=== PATIENT | female | born 1955 | race Caucasian/White ===

== ENCOUNTER → 2023-08-27 11:00 | Outpatient (REF) | payer MEDICARE, SELFPAY | LOC: PAVMRI 11:00 | PROVIDERS: ATTENDING PHYSICIAN Family Medicine | DX: H53.9 Unspecified visual disturbance (principal); R47.89 Other speech disturbances | CPT/HCPCS: 70544; 70553; A9575 ==

== ENCOUNTER 2023-09-12 22:14 | Observation (INO) | payer MEDICARE, SELFPAY ==
[2023-09-12 19:39] VITALS: BP 179/89
[2023-09-12 19:51] VITALS: BMI 36.7
[2023-09-12 19:52] VITALS: BP 180/103
[2023-09-12 19:58] LABS: Glucose - Point of Care 123 mg/dl (70-99)
[2023-09-12 20:00] VITALS: BP 175/97
--- NOTE | 2023-09-12 20:03 | ED.CVA ---
History of Present Illness
General
Chief Complaint: CVA/TIA Symptoms
Source: patient
Exam Limitations: none
Time Seen by Provider: 09/12/23 19:51
Onset of Stroke Symptoms
Onset of symptoms known: Yes
Date of onset of symptoms: 09/12/23
Time of onset of symptoms: 17:30
Travel History
Have you had any contact with someone who has COVID-19?: No
Do you have any symptoms of coronavirus? Fever > 100 degrees, chills, cough, shortness of breath, sore throat, loss of taste or smell, muscle aches, or headache?: No
History of Present Illness
History of Present Illness:
59-year-old female noted some foggy feeling then was talking to herself and her cats and noted difficulty with her speech. Symptoms x 30 minutes. Previous similar episode last summer. Patient does take an aspirin per day. No other neurologic
symptoms. 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
Past History
Past History
ED Past Medical History: HTN and Hypercholesterolemia
ED Past Surgical History: and Orthopedic
Review of Systems
Review of Systems
All Other Systems: Not applicable
Respiratory: Reports no symptoms
Cardiac: Reports no symptoms
ABD/GI: Reports no symptoms
Phy Exam
Physical Exam
Physical Exam:
GENERAL: Alert and oriented in no apparent distress
EYE: Orbits normal.
NECK: Supple, no carotid bruit
ENT: Pharynx without erythema
CARDIAC: Regular rate and rhythm without any obvious murmurs.
LUNGS: Clear breath sounds,normal
ABDOMEN: Soft, without focal tenderness or distention
NEUROLOGICAL: Alert and oriented , cranial nerves II through XII intact. Speech normal. Extraocular muscles intact. Lalitt-jy-[id number] normal. No drift. Good lower extremity strength. Plur-mk-irak normal. Light touch intact. No neglect.
SKIN: Warm and dry, no rash or lesion, no discoloration, skin intact.
MUSCULOSKELETAL: No edema,no deformity.Good color
PSYCH: Normal and appropriate interaction.
Course
Orders/Labs/Results
Orders:
Orders
09/12/23 19:51
Electrocardiogram (*1) Stat
Reason for Study: Other
Other Reason for Exam: neuro symptoms
CT Head W/o Iv Contrast Urgent
Comment:
Reason For Exam: Transient aphasia
Cardiac Monitoring- Treatment ONCE
EKG- Treatment ONCE
IV Insert/Care/Rem.- Treatment PRN
Pulse Ox/cont/shift [RESP] Stat
Quantity: 1
09/12/23 19:54
Basic Metabolic Panel Urgent
Complete Blood Count/With Diff Urgent
PTT Urgent
Prothrombin Time Urgent
Abnormal Lab Results
09/12/23 09/12/23
19:54 19:56
BUN 31 H mg/dl
(7-17)
Glucose 123 H mg/dl
(70-99)
Calcium 10.8 H mg/dl
(8.4-10.2)
POC Glucose 123 H mg/dl
(70-99)
09/12/23 19:54
09/12/23 19:54
Vital Signs
Initial and Last Documented VS:
Initial Vital Signs
Temp Pulse Resp BP Pulse Ox
98.3 F 75 18 179/89 96
09/12/23 19:39 09/12/23 19:39 09/12/23 19:39 09/12/23 19:39 09/12/23 19:39
Last Documented Vital Signs
Temp Pulse Resp BP Pulse Ox
98.3 F 75 18 179/89 96
09/12/23 19:39 09/12/23 19:39 09/12/23 19:39 09/12/23 19:39 09/12/23 19:39
MDM/Problems Addressed
Differential Diagnosis Includes:
Symptoms consistent with a TIA. Currently asymptomatic. Workup in progress. Warrants admission
*Radiology
Radiology exam reviewed: radiology read reviewed (Negative)
*Pulse Oximetry
Patient hypoxic: no
*EKG
Interpreted by ED Provider?: Yes
Interpretation: normal
Comparison EKG: no comparison EKG present
Heart Rate: 71
Rate: normal
Rhythm: sinus
Rufus: left axis deviation
Interval: normal interval
QRS Pattern: normal QRS
Ischemia: no ischemia
*Critical Care Note
Total Time (30-74mins, 75-104mins- exclusive of procedures): Not Applicable
Data Reviewed
Review of Other/Old Records Reveals: Labs and Radiology Studies
Update Note
Update Note:
Expressive aphasia TIA. Warrants inpatient management
ED Attending Note
-
Portions of this chart may have been created with voice recognition software.� Occasional wrong word or��sound alike� substitutions may have occurred due to the inherent limitations of voice recognition software.
Discharge Plan
Departure
Patient Disposition: Admit
Date of Disposition: 09/12/23
Time of Disposition: 20:32
Presentation/result/management discussed w/ accepting MD/DO: Hospitalist
Discharge Problem:
Expressive aphasia/TIA
Prescriptions:
No Action
levothyroxine 137 mcg Tablet
137 mcg PO DAILY
aspirin 325 mg Tablet
325 mg PO HS
lisinopril 20 mg Tablet
20 mg PO DAILY
Theragen Tablet
1 tab PO HS
carvedilol 3.125 mg Tablet
3.125 mg PO BID
furosemide 20 mg Tablet
20 mg PO Q48H@0800
rosuvastatin 20 mg Tablet
20 mg PO DAILY
cholecalciferol (vitamin D3)
1 tab PO DAILY
magnesium
1 tab PO DAILY
Referrals:
UNKNOWN - PT DOES,NOT KNOW [Family Provider] -
Interventions
Interventions:
*Risk Screen - Suicide Last Done: 09/12/23 19:39
*General Assessment Last Done: 09/12/23 19:39
*Neglect/Abuse Screening Last Done: 09/12/23 19:39
ED- Neurological Assessment Last Done: 09/12/23 19:57
[2023-09-12 20:06] LABS: % Basophils 0.9 % (0-2); % Immature Granulocytes 0.2 % (0-0.5); % Lymphocytes 28.7 % (20.5-51.1); % Monocytes 5.5 % (1.7-9.3); % Neutrophils 60.7 % (42.2-75.2); Absolute Basophils 0.1 10^3/uL (0-0.2); Absolute Eosinophils 0.2 10^3/uL (0-0.7); Absolute Lymphocytes 1.5 10^3/uL (1.2-3.4); Absolute Monocytes 0.3 10^3/uL (0.1-0.6); Absolute Neutrophils 3.2 10^3/uL (1.4-6.5); Hematocrit 41.5 % (37.0-47.0); Hemoglobin 14.7 g/dL (12.0-16.0); Mean Corp Hgb Conc. 35.4 g/dL (33.0-37.0); Mean Corpuscular Hgb 30.8 pg (27.0-31.0); Mean Platelet Volume 8.9 fL (7.4-10.4); Nucleated Red Blood Cells % 0 %; Platelet Count 174 10^3/uL (130-400); Red Blood Cell Count 4.77 10^6/uL (4.20-5.40); Red Cell Dist. Width 12.9 % (11.5-14.5); White Blood Cell Count 5.3 10^3/uL (4.8-10.8)
[2023-09-12 20:19] LABS: Blood Urea Nitrogen 31 mg/dl (7-17); Calcium 10.8 mg/dl (8.4-10.2); Carbon Dioxide 26 mmol/L (22-30); Chloride 100 mmol/L (98-107); Estimated Creatinine Clearance 60 ml/min; Glucose 123 mg/dl (70-99); Potassium 3.9 mmol/L (3.5-5.1); Sodium 137 mmol/L (135-145); eGFR > 60.00
[2023-09-12 20:38] LABS: INR 1.02; PT 13.4 Sec (11.4-14.6)
[2023-09-12 20:39] LABS: APTT 25.9 Sec (23.4-35.0)
--- NOTE | 2023-09-12 20:43 | HPS.HSE ---
Addendum entered and electronically signed by Zen Boyd DO 09/12/23 22:56:
I saw and examined the patient.
The FAITH HEALER's note was reviewed and I agree with the note.
Subjective
This is a 59yo F with PMH CVA, HTN/HLD, Hypothyroidism who presents to ER after episode of word finding difficulty around 5:30pm while at home watching tv and using the computer. Pt states she could feel it coming on. Denies associated headache.
Additionally had difficulty reading her daughters text messages as well as had difficulty texting back. She was able to call her daughter who also confirmed difficulty speaking which improved over time. Total duration 30min. Pt states she had
similar episode in February. Did not initially seak medication attention but then followed up with PCP and had MRI confirming subacute infarct (see 07/2023 MRI). She was started on aspirin, simvastatin changed to rosuvastatin, and additionally coreg
was added recently for uncontrolled HTN. Denies fever, chills, dizziness/LH, CP, palps, wheezing, cough, abd pain, n/v/d/c, dysuria, calf or leg pain. Denies focal weakness or sensation deficits.
Physical Exam:
GEN: No acute distress, conversant, pleasant
HEENT: anicteric, extraocular movements intact, clear oropharynx without exudates
CV: normal S1/S2, no murmur, rub or gallop
RESP: clear to auscultation bilaterally
GI: soft, non-distended, not tender to palpation, normal active bowel sounds, no hepatosplenomegaly
EXT: warm, well perfused, no edema bilaterally
NEURO: AAOx3, non-focal. No tongue deviation. Uvula midline. MSK 5/5 throughout. Sensation intact. Finger to nose and heel to mauro intact.
Psych: Flat affect.
A/P
Expressive Aphasia / Hx CVA
- CT brain negative for acute pathology
- Recent 07/2023 MRI/MRA reviewed: Cortical and subarachnoid T2/FLAIR hyperintense signal within the right temporoparietal and occipital regions and also minimally in the posterior left parietal region, without associated enhancement. There may be
subtle/questionable restricted diffusion associated with these areas as well as questionable attenuation of distal/peripheral right posterior cerebral artery branches (P4/P5). Findings may reflect subacute cortical infarction. No associated
hemorrhage. Differential includes atypical appearance of posterior reversible encephalopathy syndrome (PRES), meningitis and changes related to migraines.Otherwise no focal hemodynamically significant stenosis, aneurysm or occlusion.
- Stroke protocol. Q4h neurochecks. Obtain MRI/TTE
- Currently observing permissive HTN. Prn Hydralazine for SBP > 220/120mmHg
- Check Lipids/A1C/TSH/B12
- Continue aspirin/statin.
- Neuro consult, PT/OT
Uncontrolled HTN
-allow permissive htn
- Lisinopril/lasix on hold. Will continue coreg given gross elevation wtih Prn Hydralazine for SBP > 220/120mmHg
Hypothyroidism - Continue home synthroid
Diet - Regular
Code Status - Full
PPx - SCDs
Original Note:
Family Physician
-
Family Physician: Vonda Lenz
Chief Complaint
-
difficulty finding words
History of Present Illness
59-year-old female with PMh for HTN, HLD presented to us with finding words difficulty today which lasted for 30 minutes. she was not able to text. she had same symptoms in February. at that time, she noted some foggy feeling. she did not seek help at
that time. later in July, she told her PCP and obtained MRI with subacute infraction and was initiated on aspirin. denied GALLEGOS, dizzy or syncopal episode. denied blurry vision, numbness or tingling. denied any focal weakness. denied fever, chills,
chest pain, sob. denied abdominal pain, n,v, d. denied dysuria or hematuria.
Head CT with no acute findings. admitting for further management.
Medical History
Past Medical History
Past Medical History: Reports Other
Additional Past Medical History:
htn
hld
Past Surgical History: Reports Other
Additional Past Surgical History:
left foot reconstruction
left knee replacement
c section
Social History
Tobacco: Non-smoker
Alcohol: Occasional
Drug: None
Family History
Family History: Not pertinent
Allergies / Home Medications
Allergies reflects when Allergies were last updated in [facility].
Home Medications with original date entered in [facility]
Allergy/Medication List:
Allergies
Allergy/AdvReac Type Severity Reaction Status Date / Time
meperidine [From Demerol] Allergy Vomiting Verified 06/13/20 12:26
Home Medications
aspirin 325 mg tablet 325 mg PO HS 09/12/23
carvedilol 3.125 mg tablet 3.125 mg PO BID 09/12/23
cholecalciferol (vitamin D3) 1 tab PO DAILY 09/12/23
furosemide 20 mg tablet 20 mg PO Q48H@0800 09/12/23
levothyroxine 137 mcg tablet 137 mcg PO DAILY 09/12/23
lisinopril 20 mg tablet 20 mg PO DAILY 09/12/23
magnesium 1 tab PO DAILY 09/12/23
rosuvastatin 20 mg tablet 20 mg PO DAILY 09/12/23
therapeutic multivitamin 1 tab PO HS 09/12/23
Review of Systems
-
Constitutional: Reports No Symptoms
EENT: Reports No Symptoms
Respiratory: Reports No Symptoms
Cardiac: Reports No Symptoms
Abdomen/GI: Reports No Symptoms
: Reports No Symptoms
Musculoskeletal: Reports No Symptoms
Skin: Reports No Symptoms
Neurological: Reports Other (finding words difficutly)
Endocrine: Reports No Symptoms
Hematologic/Lymphatic: Reports No Symptoms
Psych: Reports No Symptoms
Physical Exam
Vital Signs
Vital Signs
Temp Pulse Resp BP Pulse Ox
98.3 F 67 24 175/97 96
09/12/23 19:39 09/12/23 20:30 09/12/23 20:30 09/12/23 20:00 09/12/23 19:39
Physical Exam
General: Well Developed, Well Nourished and No Apparent Distress
HEENT: NormoCephalic, Moist mucous membranes and Atraumatic
Respiratory: Clear
Cardiac: S1/S2 and Regular Rhythm; No Murmur or Rub
GI: Soft, Non Tender, Non Distended and Normal Bowel Sounds; No Organomegaly
Rectal: Deferred by Provider
Musculoskeletal: No Clubbing, No Cyanosis and No Edema
Skin: No Rash
Neuro: AO x 3 and Nonfocal/grossly intact
Psych: Calm
Laboratory Results
-
09/12/23 19:54
09/12/23 19:54
Laboratory Results
PT 13.4 Sec (11.4-14.6) 09/12/23 19:54
INR 1.02 09/12/23 19:54
APTT 25.9 Sec (23.4-35.0) 09/12/23 19:54
Data Reviewed
-
CT Scan: Report Reviewed by me
Lab Data: Labs Reviewed by me
Impression/Plan
-
#expressive aphasia likely TIA
-head CT with No acute intracranial abnormality.
-recent MRI on 08/27Cortical and subarachnoid T2/FLAIR hyperintense signal within the right temporoparietal and occipital regions and also minimally in the posterior left parietal region, without associated enhancement. There may be
subtle/questionable restricted diffusion associated with these areas as well as questionable attenuation of distal/peripheral right posterior cerebral artery branches (P4/P5). Findings may reflect subacute cortical infarction. No associated
hemorrhage. Differential includes atypical appearance of posterior reversible encephalopathy syndrome (PRES), meningitis and changes related to migraines.Otherwise no focal hemodynamically significant stenosis, aneurysm or occlusion.
-obtain MRI
-ECHO
-lipid profile
-a1c
-statin and aspirin
-PT/OT
-neuro consult
#essential htn
-allow permissive htn
-lisinopril, Coreg continued
-hold Lasix
#DVT prophylaxis
-scd
#CODE status
-full code
[2023-09-12 21:00] VITALS: BP 152/75
--- NOTE | 2023-09-12 22:25 | CON.NEURO ---
Addendum entered and electronically signed by Gini Whitlock MD 10/16/23 16:54:
DOS: �09/13/23
Original Note:
Consultation
Order
Date of Consultation: 09/13/23
Requesting Provider: ANILA Young
Reason for Consult: stroke
CC:none
HPI: This is a 67-year-old woman who presented to [facility] on September 12, 2023 with language dysfunction. According to the patient
According to the patient she had difficulties expressing her thoughts as well as manipulating her phone including texting lasting for half an hour with associated transient headache on the day of the presentation. Ms. Oliva recalls similar episode
lasting for several hours that occurred in February. She had brain MRI in July 2023 after she mentioned about her first spell during her PCP visit. The patient admits that her colleagues have been noticing her intermittent 'mistyping'. No
reports of visual changes, abnormal movements, history of head trauma with loss of consciousness or childhood epilepsy. No recently started medications
ER VS: 179/89-180/103, 75, afebrile.
EKG-NSR
Labs: Glucose�123, normal WBCs, sodium, LDL 67.
MRI brain with severo(08/27/2023) 'Cortical and subarachnoid T2/FLAIR hyperintense signal within the right temporoparietal and occipital regions and also minimally in the posterior left parietal region, without associated enhancement. There may be
subtle/questionable restricted diffusion associated with these areas as well as questionable attenuation of distal/peripheral right posterior cerebral artery branches (P4/P5). Findings may reflect subacute cortical infarction. No associated
hemorrhage. Differential includes atypical appearance of posterior reversible encephalopathy syndrome (PRES), meningitis and changes related to migraines.
Brain MRI wo severo(09/13/2023)-Partial resolution of the previous areas of hyperintense T2/FLAIR signal intensity in the cortical and subarachnoid right temporal parietal and occipital regions. Minimal residual increased T2 signal intensity in the
deep white matter this area. As noted on the previous examination this could represent an atypical appearance of vasculitis and/or migraines headaches. Differential at that time included atypical appearance of posterior reversible encephalopathy
syndrome (PRES) and meningitis. However there was no abnormal enhancement in this region on the previous exam'
MRA head(08/27/2023)-�no focal hemodynamically significant stenosis, aneurysm or occlusion.
PDMP: No recently prescribed medications.
PMH: CAD, HTN, DLP, DM, CKD, GERD, OA, obesity, BL SNHL
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
FH: Noncontributory
All: Demerol
ROS:Constitutional: Negative. Negative for chills, fever and unexpected weight change.
HENT: Negative for ear pain, hearing loss, tinnitus and trouble swallowing.
Eyes: Negative. Negative for photophobia, pain and visual disturbance.
Respiratory: Negative for cough, choking and shortness of breath.
Cardiovascular: Negative for chest pain, palpitations and leg swelling.
Gastrointestinal: Negative for abdominal pain and vomiting.
Endocrine: Negative. Negative for cold intolerance.
Genitourinary: Negative for dysuria, flank pain and urgency.
Musculoskeletal: Negative for back pain, gait problem, neck pain and neck stiffness.
Skin: Negative for rash.
Allergic/Immunologic: Negative. Negative for immunocompromised state.
Neurological: Negative for dizziness, tremors, seizures, speech difficulty, numbness and headaches.
Psychiatric/Behavioral: Negative for behavioral problems, confusion and hallucinations.
General: Well developed. In no acute distress.
Cardio: Regular rate and rhythm without murmur. Extremities are without cyanosis or edema.
Neuro:
Mental Status: Alert, oriented to person, place, and date. Normal attention and recall. Good fund of knowledge. Follows complex requests across the midline. Comprehension, naming, and repetition intact. Immediate and delayed recall 3/3.
Cranial Nerves: . Pupils are equally round and reactive to light. EOMs full. Visual haile full to confrontation. No ptosis. No nystagmus. V1-V3 intact to light touch and pinprick bilaterally, symmetric. Face symmetric. Poor hearing AU. The
palate elevated well. SCMs and traps 5/5. Tongue midline. No dysarthria.
Motor: Normal bulk and tone. No pronator or arm drift. Strength 5/5 throughout. No clonus.
Reflexes: 2+ throughout the upper extremities and knees. Plantar responses flexor bilaterally.
Sensory: Normal pinprick, vibration and JPS.
Coordination: No dysmetria or tremor.
Gait: deferred
Assessment and Plan:
I. Probably hypertensive emergency
II. Abnormal brain MRI. Differential diagnosis includes PRES, less likely postictal.
III. HTN
-Strict BP control
-OP cEEG
-Start Keppra 500 mg twice daily with a plan to wean off as outpatient
-Patient neurology follow-up in 2-3 weeks
I personally reviewed all radiology and labs along with past medical records pertinent to current medical problems. total time spent in patient care is 60 minutes.
Thank you for allowing us to participate in the care of this patient. We will continue to follow. Please do not hesitate to contact us with any questions or concerns.
Subjective/Objective
Subjective Data
Date of Service: September 12, 2023
Objective Data
Vital Signs
Temp Pulse Resp BP Pulse Ox
36.8 C 67 24 175/97 96
09/12/23 19:39 09/12/23 20:30 09/12/23 20:30 09/12/23 20:00 09/12/23 19:39
Lab Results
09/12/23 19:54
09/12/23 19:54
PT 13.4 Sec (11.4-14.6) 09/12/23 19:54
INR 1.02 09/12/23 19:54
APTT 25.9 Sec (23.4-35.0) 09/12/23 19:54
Sodium 137 mmol/L (135-145) 09/12/23 19:54
Potassium 3.9 mmol/L (3.5-5.1) 09/12/23 19:54
BUN 31 mg/dl (7-17) H 09/12/23 19:54
Glucose 123 mg/dl (70-99) H 09/12/23 19:54
Calcium 10.8 mg/dl (8.4-10.2) H 09/12/23 19:54
Patient Allergies
meperidine [From Demerol] Allergy (Verified 06/13/20 12:26)
Vomiting
Medications
-
Home Medications
Medication Instructions Recorded
aspirin 325 mg tablet 325 mg PO HS 09/12/23
carvedilol 3.125 mg tablet 3.125 mg PO BID 09/12/23
cholecalciferol (vitamin D3) 1 tab PO DAILY 09/12/23
furosemide 20 mg tablet 20 mg PO Q48H@0800 09/12/23
levothyroxine 137 mcg tablet 137 mcg PO DAILY 09/12/23
lisinopril 20 mg tablet 20 mg PO DAILY 09/12/23
magnesium 1 tab PO DAILY 09/12/23
rosuvastatin 20 mg tablet 20 mg PO DAILY 09/12/23
therapeutic multivitamin 1 tab PO HS 09/12/23
Vital Signs and Labs
-
Vital Signs and Labs:
Vital Signs
Temp Pulse Resp BP Pulse Ox
36.6 C 72 16 133/87 98
09/13/23 12:08 09/13/23 12:08 09/13/23 12:08 09/13/23 12:08 09/13/23 12:08
Lab Results
09/13/23 07:30
09/13/23 07:30
PT 13.4 Sec (11.4-14.6) 09/12/23 19:54
INR 1.02 09/12/23 19:54
APTT 25.9 Sec (23.4-35.0) 09/12/23 19:54
Sodium 136 mmol/L (135-145) 09/13/23 07:30
Potassium 3.8 mmol/L (3.5-5.1) 09/13/23 07:30
BUN 25 mg/dl (7-17) H 09/13/23 07:30
Glucose 176 mg/dl (70-99) H 09/13/23 07:30
Calcium 10.0 mg/dl (8.4-10.2) 09/13/23 07:30
LDL Cholesterol, Calc 67 mg/dl 09/13/23 07:30
Vitamin B12 > 1000 pg/ml (239-931) H 09/13/23 07:30
Home Medications
-
Home Medications
aspirin 325 mg tablet 325 mg PO HS Blood Clot Prevention/Tx 09/12/23
carvedilol 3.125 mg tablet 3.125 mg PO BID Heart Failure 09/12/23
cholecalciferol (vitamin D3) 1 tab PO DAILY Supplement 09/12/23
furosemide 20 mg tablet 20 mg PO Q48H@0800 Fluid Retention/Swelling 09/12/23
levothyroxine 137 mcg tablet 137 mcg PO DAILY Thyroid 09/12/23
lisinopril 20 mg tablet 20 mg PO DAILY Blood Pressure 09/12/23
magnesium 1 tab PO DAILY Supplement 09/12/23
rosuvastatin 20 mg tablet 20 mg PO DAILY High Cholesterol 09/12/23
therapeutic multivitamin 1 tab PO HS Supplement 09/12/23
Medications
-
Medications:
Generic Name Dose Route Start Last Admin
Trade Name Freq PRN Reason Stop Dose Admin
Acetaminophen 650 mg 09/13/23 00:33
Acetaminophen 650 Mg Rectal Suppository RECTAL 10/11/23 00:32
Q4HPRN PRN
GALLEGOS, mild pain, or temp >100.4F
Acetaminophen 650 mg 09/13/23 00:33 02/16/24 05:14
Acetaminophen 325 Mg Tablet PO 10/11/23 00:32 650 mg
Q4HPRN PRN Administration
GALLEGOS, mild pain, or temp >100.4F
Aspirin 81 mg 09/13/23 08:00 09/13/23 12:09
Aspirin 81 Mg Chewable Tablet PO 10/11/23 07:59 81 mg
DAILY MARRY Administration
Atorvastatin Calcium 40 mg 09/13/23 18:00
Atorvastatin (Lipitor) 40 Mg Tablet PO 10/11/23 17:59
QPM MARRY
Carvedilol 3.125 mg 09/13/23 08:00 09/13/23 12:09
Carvedilol 3.125 Mg Tablet PO 10/11/23 07:59 3.125 mg
BID MARRY Administration
Levothyroxine Sodium 137 mcg 09/13/23 07:00 09/13/23 05:14
Levothyroxine 137 Mcg Tablet PO 10/11/23 06:59 137 mcg
DAILY@0700 MARRY Administration
Ondansetron HCl 4 mg 09/13/23 06:00 09/13/23 06:08
Ondansetron 4 Mg/2 Ml Vial IV 10/11/23 05:59 4 mg
Q6HPRN PRN Administration
NAUSEA/VOMITING
Sodium Chloride 0 flush 09/13/23 01:00
Sodium Chloride 0.9% (Flush) Syringe IV 10/11/23 00:59
PER PROTOCOL MARRY
[2023-09-12 23:19] VITALS: BP 131/55
[2023-09-12 23:48] VITALS: BP 131/55
[2023-09-13] VITALS (9 sets, daily range): BP systolic 97–176; BP diastolic 53–98; BMI 36.0
--- NOTE | 2023-09-13 01:45 | PTCARENOTE ---
Pt arrived on floor @ 0010. Was able to walk into room without assistance. In stable condition, with no complaints of pain. NIH - 0. Was oriented to room and call vargas; will continue to monitor
[2023-09-13] MEDS: SYNTHROID 137 MCG PO (05:14)
[2023-09-13] MEDS: TYLENOL 650 MG PO ×2 (05:14→20:31)
[2023-09-13] MEDS: ZOFRAN 4 MG IV (06:08)
[2023-09-13 08:12] LABS: Hematocrit 37.4 % (37.0-47.0); Mean Corp Hgb Conc. 34.8 g/dL (33.0-37.0); Mean Corpuscular Hgb 30.5 pg (27.0-31.0); Mean Corpuscular Volume 87.8 fL (81.0-99.0); Mean Platelet Volume 9.4 fL (7.4-10.4); Platelet Count 148 10^3/uL (130-400); Red Blood Cell Count 4.26 10^6/uL (4.20-5.40); White Blood Cell Count 5.1 10^3/uL (4.8-10.8)
[2023-09-13 08:17] LABS: Blood Urea Nitrogen 25 mg/dl (7-17); Carbon Dioxide 28 mmol/L (22-30); Chloride 103 mmol/L (98-107); Estimated Creatinine Clearance 59 ml/min; Glucose 176 mg/dl (70-99); HDL Cholesterol 42 mg/dl; LDL Cholesterol, Calculated 67 mg/dl; Potassium 3.8 mmol/L (3.5-5.1); Sodium 136 mmol/L (135-145); Total Cholesterol 135 mg/dl (50-199); Triglyceride 131 mg/dl (10-149); Very Low Density Lipoprotein 26 mg/dl (0-30); eGFR > 60.00
[2023-09-13 08:46] LABS: TSH 2.77 uIU/ml (0.47-4.68)
[2023-09-13 09:06] LABS: Vitamin B12 > 1000 pg/ml (239-931)
--- NOTE | 2023-09-13 10:34 | EEGC.RPT ---
Continuous EEG Report
Recording
Start Date of Data Reviewed: 09/13/23
Done with Video Recording: Yes
Study Sequence: Interim Review
Electrocardiogram: Unremarkable
Report
TECHNICAL REMARKS: This is a technically satisfactory eighteen channel record employing 21 disc electrodes applied according to a measured international 10-20 electrode placement system. There were no significant technical difficulties. The study
was done on a [employer] System.
CLINICAL HISTORY: This is a 67-year-old woman with intermittent aphasia. This study was requested to look for epileptiform abnormalities.
MEDICATION: no AED
STUDY DURATION: 30 min, 3 secs
REPORT: At the onset of the EEG, the patient is awake. The background activity consists of 9.0-9.5 Hz, persistent, posteriorly dominant, moderate amplitude, symmetric and rhythmic activity that is reactive to eye-opening. Anteriorly, it consists of
a mixture of low voltage indeterminate activity and 20-25 Hz, persistent, low amplitude, symmetric and rhythmic activity. Stepwise intermittent photic stimulation (1-31 Hz) does not induce any abnormalities. Hyperventilation was not performed.
Drowsiness is characterized by low amplitude mixed frequency activity, decreased eye blinking, and muscle artifact. N2 sleep was reached.
IMPRESSION: This is a normal awake and sleep EEG. There is no evidence of focal slowing or epileptiform activity. A normal EEG does not rule out epilepsy. If the clinical picture warrants, a sleep-deprived awake and sleep record may be helpful.
[2023-09-13 11:40] LABS: Erythrocyte Sed Rate 5 mm/hour (0-20)
--- NOTE | 2023-09-13 12:07 | CM ---
Patient seen bedside, initial assessment completed. Patient reports she lives independently in a single story home with one step to enter. Patient denies DME, history of outpatient and in home physical therapy with [facility], denies SNF. Patient
confirms PCP Dr. Lenz, pharmacy [facility]. VELEZ status explained, form provided, refuse to sign, placed in patients chart. Per Hospitalist, will order PT/OT, neurology consulted. CM will continue to follow for discharge planning needs.
Plan; home no needs vs VN, watch for PT/OT assessment.
[2023-09-13] MEDS: LOW STRENGTH ASPIRIN 81 MG PO (12:09)
[2023-09-13] MEDS: COREG 3.125 MG PO ×2 (12:09→20:30)
--- NOTE | 2023-09-13 14:23 | W.PN.HOSP.TC ---
Today's Communication/Plan
-
await further neuro recs
Assessment / Plan
Assessment / Plan
Assessment:
Expressive Aphasia/Hx CVA
- CT brain negative for acute pathology
- Recent 07/2023 MRI/MRA reviewed: Cortical and subarachnoid T2/FLAIR hyperintense signal within the right temporoparietal and occipital regions and also minimally in the posterior left parietal region, without associated enhancement. There may be
subtle/questionable restricted diffusion associated with these areas as well as questionable attenuation of distal/peripheral right posterior cerebral artery branches (P4/P5). Findings may reflect subacute cortical infarction. No associated
hemorrhage. Differential includes atypical appearance of posterior reversible encephalopathy syndrome (PRES), meningitis and changes related to migraines.Otherwise no focal hemodynamically significant stenosis, aneurysm or occlusion.
- Stroke protocol. Q4h neuro-checks.
- MRI brain: no new infarct
- spot EEG negative
- Echo: pending
- LDL 67, A1c pending
- Continue aspirin/statin.
- Neuro consulted; await any further testing or recommendations.
- cleared PT/OT for home
Uncontrolled HTN
- resume AJAY/Lasix/Coreg
Hypothyroidism�- Continue home Synthroid
DVT ppx: SCDs
Code: Full
Anticipated Discharge: Within 24 hours
Subjective/Interval History
-
Date of Service: September 13, 2023
denies any current complaints
Objective Data
-
Labs:
Laboratory Results
09/13/23
07:30
WBC 5.1
Hgb 13.0
Hct 37.4
Plt Count 148
Sodium 136
Potassium 3.8
Chloride 103
Carbon Dioxide 28
BUN 25 H
Creatinine 1.0
Glucose 176 H
Calcium 10.0
Vital Signs:
Vital Signs
Temp Pulse Resp BP Pulse Ox
97.9 F 72 16 133/87 98
09/13/23 12:08 09/13/23 12:08 09/13/23 12:08 09/13/23 12:08 09/13/23 12:08
Physical Exam
-
General: No Apparent Distress
HEENT: Normocephalic and Atraumatic
Respiratory: Negative Wheezes
Cardiac: Regular Rhythm
GI: Soft
Musculoskeletal: No Edema
Neuro: AO x 3
Hematologic / Lymphatic: No Lymphadenopathy
Psych: Calm
Data Reviewed
-
Total Time Spent with Patient (in minutes): 45
Labs: Labs Reviewed by me
--- NOTE | 2023-09-13 16:14 | PTOTSP ---
ST Swallowing Assessment
Pt presents with functional oropharyngeal parameters. Pt self-reports some slight cognitive communication deficits that would benefit from a comprehensive cognitive linguistic evaluation as an OP.
[2023-09-13] MEDS: LIPITOR 40 MG PO (17:20)
[2023-09-13] MEDS: KEPPRA 500 MG IV (20:31)
[2023-09-14 03:31] VITALS: BP 110/61
[2023-09-14] MEDS: SYNTHROID 137 MCG PO (05:09)
[2023-09-14] MEDS: KEPPRA 500 MG IV (07:30)
[2023-09-14] MEDS: LOW STRENGTH ASPIRIN 81 MG PO (07:30)
[2023-09-14] MEDS: COREG 3.125 MG PO (07:30)
[2023-09-14 07:55] VITALS: BP 111/65
--- NOTE | 2023-09-14 09:27 | W.PN.HOSP.TC ---
Today's Communication/Plan
-
dc home today
Assessment / Plan
Assessment / Plan
Assessment:
Expressive Aphasia/Hx CVA
- CT brain negative for acute pathology
- Recent 07/2023 MRI/MRA reviewed: Cortical and subarachnoid T2/FLAIR hyperintense signal within the right temporoparietal and occipital regions and also minimally in the posterior left parietal region, without associated enhancement. There may be
subtle/questionable restricted diffusion associated with these areas as well as questionable attenuation of distal/peripheral right posterior cerebral artery branches (P4/P5). Findings may reflect subacute cortical infarction. No associated
hemorrhage. Differential includes atypical appearance of posterior reversible encephalopathy syndrome (PRES), meningitis and changes related to migraines.Otherwise no focal hemodynamically significant stenosis, aneurysm or occlusion.
- Stroke protocol. Q4h neuro-checks.
- MRI brain: no new infarct
- spot EEG negative
- Echo: pending
- LDL 67, A1c pending
- Continue aspirin/statin.
- Neuro started Keppra 500mg BID; f/u Neuro in 2-3 weeks.
- cleared PT/OT for home
Uncontrolled HTN
- continue AJAY/Lasix/Coreg
Hypothyroidism�- Continue home Synthroid
DVT ppx: SCDs
Code: Full
More than 30 minutes spent in discharge including
Final examination of the patient
Summarizing hospital stay
Instructions for continuing care to all relevant caregivers
Preparation of discharge records, prescriptions, and referral forms
Total time spent (in minutes): 40
Anticipated Discharge: Today
Subjective/Interval History
-
Date of Service: September 14, 2023
denies any new complaints, tolerating Keppra
Objective Data
-
Vital Signs:
Vital Signs
Temp Pulse Resp BP Pulse Ox
97.9 F 63 16 111/65 95
09/14/23 07:55 09/14/23 07:55 09/14/23 07:55 09/14/23 07:55 09/14/23 07:55
I&O
09/13/23 09/14/23 09/15/23
06:59 06:59 06:59
Intake Total 1440 / 1440
Balance 1440 / 1440
Physical Exam
-
General: No Apparent Distress
HEENT: Normocephalic and Atraumatic
Respiratory: Negative Wheezes or Rales
Cardiac: Regular Rhythm and S1/S2
GI: Soft
Genito-urinary: No Costovertebral Tender
Musculoskeletal: No Edema
Neuro: AO x 3
Hematologic / Lymphatic: No Lymphadenopathy
Psych: Calm
Data Reviewed
-
Total Time Spent with Patient (in minutes): 42
Labs: Labs Reviewed by me
--- NOTE | 2023-09-14 09:32 | W.DS.TRANS ---
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
-
Discharge Instructions:
Discharge Diagnosis/Procedures hypertension, possible seizure
Diet Regular
Activity As tolerated
Bathing Restrictions None
Instructions:
Stand-Alone Forms:
Changes to Home Medications: No
Discharge Medications:
DC Medications w/original date entered in [employer]
aspirin 325 mg tablet 325 mg PO HS Blood Clot Prevention/Tx 09/12/23
carvedilol 3.125 mg tablet 3.125 mg PO BID Heart Failure 09/12/23
cholecalciferol (vitamin D3) 1 tab PO DAILY Supplement 09/12/23
furosemide 20 mg tablet 20 mg PO Q48H@0800 Fluid Retention/Swelling 09/12/23
levothyroxine 137 mcg tablet 137 mcg PO DAILY Thyroid 09/12/23
lisinopril 20 mg tablet 20 mg PO DAILY Blood Pressure 09/12/23
magnesium 1 tab PO DAILY Supplement 09/12/23
rosuvastatin 20 mg tablet 20 mg PO DAILY High Cholesterol 09/12/23
therapeutic multivitamin 1 tab PO HS Supplement 09/12/23
levetiracetam 500 mg tablet (Keppra) 500 mg PO BID #60 tabs 09/13/23
Home Medication Changes
Pending Results: No
Total time spent discharging patient (in min): 41
--- NOTE | 2023-09-14 10:27 | CM ---
Patient seen bedside, reports no new concerns to CM at this time. Patient reports her daughter will be picking her up. CM will continue to follow for discharge planning needs.
Plan; home no needs, daughter to provide transport.
[2023-09-14 10:57] LABS: Glycohemoglobin (HgbA1c) 6.4 % (4.0-5.6)
== END 2023-09-14 12:01 | disposition home or self-care (01) ==
LOC: 4 WEST ACU 22:14
PROVIDERS: Registered Nurse; ADMITTING PHYSICIAN Internal Medicine; ATTENDING PHYSICIAN Internal Medicine; CONSULT PHYSICIAN Psychiatry & Neurology Neurology; EMERGENCY PHYSICIAN Emergency Medicine; FAMILY PHYSICIAN Family Medicine
DX: R47.01 Aphasia (principal); E78.00 Pure hypercholesterolemia, unspecified; E03.9 Hypothyroidism, unspecified; I25.10 Atherosclerotic heart disease of native coronary artery without angina pectoris; E66.9 Obesity, unspecified; Z79.890 Hormone replacement therapy; Z79.82 Long term (current) use of aspirin; Z60.2 Problems related to living alone; Z68.36 Body mass index [BMI] 36.0-36.9, adult; Z86.73 Personal history of transient ischemic attack (TIA), and cerebral infarction without residual deficits
CPT/HCPCS: 70450; 70551; 80048; 80061; 82607; 82962; 83036; 84443; 85025; 85027; 85610; 85652; 85730; 86140; 92610; 93005; 93306; 95816; 97161; 97165; 99285; G0378

== ENCOUNTER → 2023-11-05 09:04 | Outpatient (REF) | payer MEDICARE, SELFPAY ==
--- NOTE | 2023-11-06 14:12 | EEG.RPT ---
Electroencephalogram Report
Recording
Date of EE11/05/23
Type of EEG: Ambulatory
Length of EEG recordin day 20 minutes
Done with Video Recording: No
Patient Status: Outpatient
Recording Conditions: Awake, Drowsy and Asleep
Hyperventilation Performed: Yes
Photic Stimulation Performed: Yes
Report
24 HOUR AMBULATORY EEG SUMMARY
24 HOUR EEG CONCLUSION(S):
Unremarkable EEG for age
CLINICAL CORRELATION:
A normal EEG may not rule out a diagnosis of epilepsy.
The patient�s logs were not available.
Consideration for multiple day monitoring may be given if concerns for epilepsy remain.
Clinical correlation is advised.
METHODS:
A 21 channel digitized electroencephalogram (EEG) was initiated in the Clinical Neurophysiology Laboratory. The patient wore the device outside of the laboratory and returned after 24 hours for electrode and recorder removal. The 10/20
international system of electrode placement was used with bipolar electrode montage recorded. ECG was monitored.
IMPRESSION(S):
Quality
Fair-Good
Background
In maximal wakefulness there was a medium amplitude alpha background.
Normal anterior-posterior voltage gradient
No significant asymmetries of background activity noted.
Hyperventilation and Photic stimulation failed to produce activation of the record.
Sleep
Drowsiness was suggested by slowing of the background rhythms
Stage I sleep was recorded
Stage 2 sleep was recorded
ECG:
Normal sinus rhythm
Persyst Review:
Kenny files: failed to demonstrate abnormalities
Seizure detections: none
== END ==
LOC: RCS 09:04
PROVIDERS: ATTENDING PHYSICIAN Nurse Practitioner Adult Health; FAMILY PHYSICIAN Student in an Organized Health Care Education/Training Program
DX: R47.89 Other speech disturbances (principal); R56.9 Unspecified convulsions
CPT/HCPCS: 95708

== ENCOUNTER → 2023-12-03 14:00 | Outpatient (REF) | payer MEDICARE, SELFPAY | LOC: PAVMRI 14:00 | PROVIDERS: ATTENDING PHYSICIAN Nurse Practitioner Adult Health; FAMILY PHYSICIAN Student in an Organized Health Care Education/Training Program | DX: R47.89 Other speech disturbances (principal); R51.9 Headache, unspecified; R90.89 Other abnormal findings on diagnostic imaging of central nervous system | CPT/HCPCS: 70553; A9575 ==

== ENCOUNTER → 2024-02-13 11:43 | Outpatient (REF) | payer MEDICARE, SELFPAY ==
[2024-02-13 12:32] VITALS: BP 121/63; BP_SYST 67
[2024-02-13 13:11] LABS: Hematocrit 41.6 % (37.0-47.0); Hemoglobin 14.5 g/dL (12.0-16.0); Mean Corp Hgb Conc. 34.9 g/dL (33.0-37.0); Mean Corpuscular Hgb 31.1 pg (27.0-31.0); Mean Corpuscular Volume 89.3 fL (81.0-99.0); Mean Platelet Volume 9.1 fL (7.4-10.4); Platelet Count 176 10^3/uL (130-400); Red Blood Cell Count 4.66 10^6/uL (4.20-5.40); Red Cell Dist. Width 12.8 % (11.5-14.5); White Blood Cell Count 5.2 10^3/uL (4.8-10.8)
[2024-02-13 13:13] LABS: INR 1.03; PT 13.5 Sec (11.4-14.6)
[2024-02-13 14:15] VITALS: BP 138/75; BP_SYST 58
[2024-02-13 14:30] VITALS: BP 128/52; BP_SYST 58
[2024-02-13 15:41] LABS: CSF Clarity Clear; CSF Color Colorless; CSF Tube # 4
[2024-02-13 15:42] LABS: Red Cell Count/CSF 0 mm^3; White Cell Count/CSF 2 mm^3 (0-5)
[2024-02-13 16:13] LABS: Spinal Fluid Glucose 79 mg/dl (40-70); Spinal Fluid Protein 79 mg/dl (12-60)
[2024-02-17 00:36] LABS: FTA-ABS/T. pallidum, IgG Serum Non Reactive (Non Reactive)
[2024-02-17 02:01] LABS: CSF VDRL (T. pallidum) Non Reactive (Non Reactive)
[2024-02-17 10:08] LABS: Albumin Index 11.2 ratio (0.0-9.0); Albumin, CSF 45 mg/dL (0-35); Albumin, Serum 4015 mg/dL (3500-5200); CSF IgG Synthesis Rate <0.0 mg/d (<=8.0); CSF IgG/Albumin Ratio 0.08 ratio (0.09-0.25); CSF Oligoclonal Bands Negative (Negative); CSF Oligoclonal Bands Number 0 Bands (0-1); IgG 665 mg/dL (768-1632); IgG, CSF 3.4 mg/dL (0.0-6.0)
[2024-02-17 23:33] LABS: Lyme Disease DNA by PCR Not Detected; Lyme Source Serum
== END ==
LOC: RADI 11:43
PROVIDERS: ATTENDING PHYSICIAN Psychiatry & Neurology Neurology; FAMILY PHYSICIAN Student in an Organized Health Care Education/Training Program
DX: R90.89 Other abnormal findings on diagnostic imaging of central nervous system (principal); R47.9 Unspecified speech disturbances
CPT/HCPCS: 36415; 62328; 82040; 82042; 82784; 82945; 83916; 84157; 85027; 85610; 86592; 86780; 87015; 87070; 87205; 87476; 88108; 89051

== ENCOUNTER → 2024-08-27 10:50 | Outpatient (REF) | payer MEDICARE, SELFPAY | LOC: WDC 10:50 | PROVIDERS: ATTENDING PHYSICIAN Student in an Organized Health Care Education/Training Program | DX: Z12.31 Encounter for screening mammogram for malignant neoplasm of breast (principal) | CPT/HCPCS: 77063; 77067 ==

== ENCOUNTER → 2024-12-28 08:33 | Outpatient (REF) | payer MEDICARE, SELFPAY | LOC: RAD 08:33 | PROVIDERS: ATTENDING PHYSICIAN Nurse Practitioner Family; FAMILY PHYSICIAN Student in an Organized Health Care Education/Training Program | DX: E34.9 Endocrine disorder, unspecified (principal) | CPT/HCPCS: 78071; A9500 ==

== ENCOUNTER → 2024-12-31 08:11 | Outpatient (REF) | payer MEDICARE, SELFPAY | LOC: RAD 08:11 | PROVIDERS: FAMILY PHYSICIAN Student in an Organized Health Care Education/Training Program | DX: E34.9 Endocrine disorder, unspecified (principal) | CPT/HCPCS: 76536 ==

== ENCOUNTER 2025-04-27 06:08 | Day surgery (SDC) | payer MEDICARE, SELFPAY ==
[2025-04-05 08:55] LABS: Hematocrit 40.0 % (37.0-47.0); Hemoglobin 13.3 g/dL (12.0-16.0); Mean Corp Hgb Conc. 33.3 g/dL (33.0-37.0); Mean Corpuscular Volume 88.5 fL (81.0-99.0); Platelet Count 148 10^3/uL (130-400); Red Cell Dist. Width 12.7 % (11.5-14.5)
[2025-04-05 08:58] LABS: INR 1.00; PT 13.5 Sec (11.4-14.6)
[2025-04-05 08:59] LABS: APTT 24.8 Sec (23.4-35.0)
[2025-04-05 09:23] LABS: ALT (SGPT) 22 U/L (0-35); AST (SGOT) 21 U/L (14-36); Albumin 4.1 g/dl (3.5-5.0); Alkaline Phosphatase 129 U/L (38-126); Blood Urea Nitrogen 18 mg/dl (7-17); Calcium 10.6 mg/dl (8.4-10.2); Carbon Dioxide 29 mmol/L (22-30); Chloride 107 mmol/L (98-107); Glucose 206 mg/dl (70-99); Potassium 5.2 mmol/L (3.5-5.1); Sodium 140 mmol/L (135-145); Total Protein 6.4 g/dl (6.3-8.2); eGFR > 60.00
[2025-04-05 14:08] VITALS: BMI 34.5
[2025-04-27] VITALS (11 sets, daily range): BP systolic 110–184; BP diastolic 73–95; BMI 34.5
[2025-04-27] MEDS: HEPARIN 5000 UNITS SC (06:28)
[2025-04-27] MEDS: TYLENOL 1000 MG PO (06:28)
[2025-04-27] MEDS: NEURONTIN 300 MG PO (06:28)
[2025-04-27] MEDS: NORMOSOL-R/PLASMALYTE-A 1000 IV (06:29)
[2025-04-27 08:23] LABS: Turbo PTH 294.7 pg/ml (13.6-85.8)
[2025-04-27 09:09] LABS: Turbo PTH 97.0 pg/ml (13.6-85.8)
[2025-04-27 09:50] LABS: Turbo PTH 102.7 pg/ml (13.6-85.8)
[2025-04-27 10:56] LABS: Turbo PTH 17.1 pg/ml (13.6-85.8)
--- NOTE | 2025-04-27 12:48 | OR.RPT ---
Operative Report
Operative Report
Date of Operation: April 27, 2025
Preoperative Diagnosis: Parathyroid hyperparathyroidism - E210
Postoperative Diagnosis: Same
Surgeon: Matt Hollis M.D.
Operation: Neck Exploration, Right Inferior and Left Inferior Parathyroidectomy - 23441
Anesthesia: GET
Estimated Blood Loss: 10 cc
Drains: None
Specimen: Right and Left Inferior neck nodules, rule out parathyroid adenomas
Complications: None
Procedure:
The patient was taken to the operating room and placed in the usual supine position. After adequate general endotracheal anesthesia was established, the patient's neck was extended, prepped, and draped in the typical sterile fashion. A 4 cm
transcervical incision was made two fingerbreadths above the sternal notch. The skin incision was made with the #15 blade, and this was taken through the skin into the subcutaneous tissue. The underlying platysma muscle was divided, and subplatysmal
flaps were created superiorly to the thyroid cartilage and inferiorly to the sternal notch. Strap muscles were identified and at the midline.
Attention was turned to the patient's right side of the neck. The right thyroid lobe was mobilized medially. During this process, the right recurrent laryngeal nerve was identified and preserved throughout the surgery. The right lower neck nodule
was identified and noted to be enlarged, excised, and sent to the pathology department, which showed a hypercellular parathyroid gland. The intraoperative PTH levels failed to normalize.
Next, attention was turned to the patient's right side of the neck. The left thyroid lobe was mobilized medially. During this process, the left recurrent laryngeal nerve was identified and preserved throughout the surgery. The left lower neck nodule
was identified and noted to be enlarged, excised, and sent to the pathology department, which showed a hypercellular parathyroid gland. The intraoperative PTH levels normalize.
After obtaining adequate hemostasis, the strap muscles were reapproximated with #3-0 Vicryl in a running fashion. The platysma muscle was reapproximated with #3-0 Vicryl in an interrupted fashion, and the skin was approximated with #4-0 Monocryl in
a running subcuticular fashion. The Steri-Strips and sterile dressings were placed. The patient tolerated the procedure well. The final instrument, needle, and sponge counts were correct. The patient was extubated and transferred to the PACU.
--- NOTE | 2025-04-27 12:55 | W.IMMPOSTOP ---
Surgical Immed Post Op Note
-
Date of Operation: April 27, 2025
Preoperative Diagnosis: Parathyroid hyperparathyroidism - E210
Postoperative Diagnosis: Same
Surgeon: Matt Hollis M.D.
Operation: Minimally Invasive Right Inferior Parathyroidectomy - 37142
Anesthesia: GET
Estimated Blood Loss: 1 cc
Drains: None
Specimen: Right Inferior neck nodule, rule out parathyroid adenoma
Complications: None
Procedure:
The patient was taken to the operating room and placed in the usual supine position. After adequate general endotracheal anesthesia was established, the patient's neck was extended, prepped, and draped in the typical sterile fashion. A 4 cm
transcervical incision was made two fingerbreadths above the sternal notch. The skin incision was made with the #15 blade, and this was taken through the skin into the subcutaneous tissue. The underlying platysma muscle was divided, and subplatysmal
flaps were created superiorly to the thyroid cartilage and inferiorly to the sternal notch. Strap muscles were identified and at the midline.
Attention was turned to the patient's right side of the neck. The right thyroid lobe was mobilized medially. During this process, the right recurrent laryngeal nerve was identified and preserved throughout the surgery. The right lower neck nodule
was identified and noted to be enlarged, excised, and sent to the pathology department, which showed a hypercellular parathyroid gland. The normal-appearing right superior parathyroid gland was identified and preserved. The intraoperative PTH levels
normalized.
After obtaining adequate hemostasis, the strap muscles were reapproximated with #3-0 Vicryl in a running fashion. The platysma muscle was reapproximated with #3-0 Vicryl in an interrupted fashion, and the skin was approximated with #4-0 Monocryl in
a running subcuticular fashion. The Steri-Strips and sterile dressings were placed. The patient tolerated the procedure well. The final instrument, needle, and sponge counts were correct. The patient was extubated and transferred to the PACU.
== END 2025-04-27 13:45 | disposition home or self-care (01) ==
LOC: SDS 06:08
PROVIDERS: ATTENDING PHYSICIAN Surgery; FAMILY PHYSICIAN Student in an Organized Health Care Education/Training Program
DX: E21.3 Hyperparathyroidism, unspecified (principal)
CPT/HCPCS: 60500; 36415; 80053; 83970; 85027; 85610; 85730; 88305; 88331; 93005

== ENCOUNTER 2025-05-02 10:05 | Emergency (ER) | payer MEDICARE, SELFPAY ==
[2025-05-02 10:12] VITALS: BP 187/94
[2025-05-02 10:15] VITALS: BP 162/91
[2025-05-02 10:52] LABS: ALT (SGPT) 29 U/L (0-35); AST (SGOT) 26 U/L (14-36); Albumin 4.4 g/dl (3.5-5.0); Alkaline Phosphatase 152 U/L (38-126); Blood Urea Nitrogen 20 mg/dl (7-17); Calcium 8.1 mg/dl (8.4-10.2); Carbon Dioxide 29 mmol/L (22-30); Chloride 99 mmol/L (98-107); Glucose 240 mg/dl (70-99); Potassium 4.0 mmol/L (3.5-5.1); Sodium 136 mmol/L (135-145); Total Protein 7.0 g/dl (6.3-8.2); eGFR > 60.00
[2025-05-02 10:56] LABS: Hematocrit 40.0 % (37.0-47.0); Hemoglobin 13.8 g/dL (12.0-16.0); Mean Corp Hgb Conc. 34.5 g/dL (33.0-37.0); Mean Corpuscular Volume 85.7 fL (81.0-99.0); Nucleated Red Blood Cells % 0 %; Platelet Count 143 10^3/uL (130-400); Red Cell Dist. Width 12.7 % (11.5-14.5)
--- NOTE | 2025-05-02 12:11 | ED.GENMED ---
History of Present Illness
General
Chief Complaint: Post Operative Problem(s)
Time Seen by Provider: 05/02/25 12:11
History of Present Illness
History of Present Illness:
FOCUSED PAST MEDICAL HISTORY
- Hyperparathyroidism, hypercalcemia
REVIEW OF OLD RECORDS
- The patient had right inferior and left inferior parathyroidectomy with Dr. Hollis on 04/27/2025.
Note:
CHIEF COMPLAINT(S)
Patient reports feeling unstable, shaky, numbness, disorientation, and tingling sensations following recent parathyroid surgery.
HISTORY OF PRESENT ILLNESS
The patient is a 69-year-old female with a history of elevated calcium levels, leading to a recent parathyroid surgery performed by Dr. Suarez on the . The surgery was indicated due to persistently high calcium levels that were not improving
despite previous interventions. Initially, the plan was to remove a single parathyroid gland; however, intraoperative blood work indicated a need to address a second gland within the same surgical session. Post-surgery, the patient was instructed to
manage calcium levels with prescribed medications.
Despite taking medication as directed, including increased dosages of calcitriol and calcium supplements, the patient reports ongoing symptoms of instability and discomfort. Specifically, she experiences periods where her symptoms improve after
medication intake but subsequently 'tank,' experiencing instability, shakiness, and a loss of sensation around her lips. This cycle occurs approximately every five hours.
On the initial evaluation, laboratory results showed the calcium level at 8.4, slightly below normal. The patients symptoms have continued without significant improvement, leading to todays emergency visit.
SOCIAL DETERMINANTS AFFECTING HEALTH
The patient was referred to an adventure challenge instructor by her family practice physician due to the persistent high calcium and parathyroid hormone levels. Her care has involved collaboration between her surgeon and adventure challenge instructor, reflecting access to
specialist care in addressing her condition.
MEDICATIONS
The patient is currently prescribed calcitriol and increased calcium supplements. The dosages were recently adjusted by Dr. Hollis due to persistent symptoms without improvement.
PHYSICAL EXAM
General: Alert, appears in mild distress due to symptoms.
Skin: Warm, mild pallor noted on examination.
Neurological: The patient describes general numbness with tingling, particularly around the lips. No focal motor deficits noted. There are no sensory deficits
- Cardiovascular: No murmurs, normal heart rate, regular rhythm, No chest wall tenderness
- Pulmonary: No respiratory distress, breath sounds are clear and equal
- Extremities: Nontender, no edema, moves all extremities equally
- Skin: No rash, no lesions
PROBLEM LIST
Acute Problems:
1. Symptomatic hypocalcemia following parathyroid surgery
2. Tingling and sensory disturbances
Chronic Problems:
1. Hyperparathyroidism
2. Elevated calcium levels with previous persistent hypercalcemia
PLAN
Further evaluation of current calcium and parathyroid hormone levels, considering persistent symptoms post-surgery. Utilize emergency messaging systems to communicate with Dr. Suarez regarding recent symptomatology and medication efficacy.
DIFFERENTIAL DIAGNOSIS
The Differential Diagnosis includes, in no particular order and is not limited to:
1. Hypocalcemia post-parathyroidectomy
2. Parathyroid hormone imbalance
3. Electrolyte disturbance
4. Medication side effects or improper dosing
5. Postoperative complications
6. Secondary hyperparathyroidism
7. Neurological deficits secondary to calcium imbalance
8. Anxiety-related symptoms post-procedure
9. Acute nutritional deficiencies affecting calcium metabolism
10. Other metabolic or endocrine disorders affecting calcium levels
LABS
- CBC normal, calcium 8.1, albumin 4.4, rapid PTH was 17 on 04/27/2025
UPDATE
- I discussed this case with Dr. Hollis. He recommends giving IV calcium and she is to continue her normal medications. He also suggested adding magnesium which we have in was normal at 1.7.
SUMMARY OF ENCOUNTER
The patient, a 69-year-old female, visited the emergency department due to symptoms of instability, shakiness, numbness, disorientation, and tingling after recent parathyroid surgery. Despite medication for calcium management post-surgery, her
symptoms persist in cycles. Dr. Hollis was contacted, and he suggested adding on a magnesium level test, which came back normal. Calcium levels remain slightly low but are not expected to cause these symptoms. It was decided to administer a high-dose
intravenous calcium to potentially improve her condition. The plan is to discharge her after administration, with instructions to continue her current medications.
DISPOSITION
Discharge.
ASSESSMENT
The patients symptoms are likely related to symptomatic hypocalcemia following recent parathyroid surgery. There is no immediate need for hospital admission.
EMERGENCY TREATMENTS ADMINISTERED
Intravenous calcium in a strong dose, higher than the outpatient dosage.
MANAGEMENT OF THE PATIENTS CARE WAS DISCUSSED WITH
Dr. Hollis was consulted regarding the current symptoms and the plan for treatment with a high-dose IV calcium and recommendations for post-discharge medication continuation.
PLAN
Administer the intravenous calcium over an hour and then discharge the patient with instructions to continue current medication regimen as advised by Dr. Suarez.
INDEPENDENT REVIEW OF LABS AND INTERPRETATION OF TESTS
My independent review of calcium levels is that they are slightly low. My independent review of the magnesium level indicates it is normal.
PATIENT EDUCATION AND COUNSELING
The patient was informed that the IV calcium administered in the emergency department is a higher than usual dose and is intended to alleviate her symptoms temporarily. She was advised to continue her prescribed medications and monitor her symptoms.
FOLLOW-UP INSTRUCTIONS
The patient should follow up with her adventure challenge instructor and surgeon, Dr. Suarez, to reevaluate her medication regimen and overall management plan. Prompt follow-up is necessary to prevent further complications.
MEDICATION RECONCILIATION
The patient is currently taking calcitriol and increased calcium supplements. A single high-dose of IV calcium was administered in the emergency department.
MEDICAL DECISION MAKING
-Complexity of Data Reviewed: Chronic conditions affecting care: Hyperparathyroidism, Elevated calcium levels with previous persistent hypercalcemia. Differential diagnoses include hypocalcemia post-parathyroidectomy, parathyroid hormone imbalance,
electrolyte disturbance, and more.
-Data:
Category 1
- Non-emergency department records reviewed.
- External record reviewed: Recent lab results indicating calcium slightly below normal and normal magnesium levels.
Category 3
- Discussion of management with Dr. Suarez regarding the treatment plan and follow-up care.
-Risk:
Prescription drug management involves monitoring calcium and other electrolyte levels due to the potential risk of complications from hypocalcemia post-parathyroidectomy.
DIAGNOSIS
Symptomatic hypocalcemia post-parathyroidectomy (ICD-10: E83.51).
Past History
Past History
ED Past Medical History: HTN and Hypercholesterolemia
ED Past Surgical History: and Orthopedic
Phy Exam
Physical Exam
Physical Exam:
See HPI
Course
Orders/Labs/Results
Orders:
Orders
05/02/25 10:23
Complete Blood Count/With Diff Urgent
Comprehensive Metabolic Panel Urgent
Magnesium Urgent
Comment: ADD ON
05/02/25 12:13
Add On- LAB Urgent
Tests Added?: PTH Rapid
05/02/25 12:38
Add On- LAB Urgent
Tests Added?: magnesium
05/02/25 12:45
Calcium Gluconate 2 gram/100mL [Calcium Gluconate] 2 gram in 100 ml IV ONCE
Abnormal Lab Results
05/02/25
10:23
BUN 20 H mg/dl
(7-17)
Glucose 240 H mg/dl
(70-99)
Calcium 8.1 L mg/dl
(8.4-10.2)
Alkaline Phosphatase 152 H U/L
(38-126)
05/02/25 10:23
05/02/25 10:23
Vital Signs
Initial and Last Documented VS:
Initial Vital Signs
Temp Pulse Resp BP Pulse Ox
36.8 C 71 17 187/94 98
05/02/25 10:12 05/02/25 10:12 05/02/25 10:12 05/02/25 10:12 05/02/25 10:12
Last Documented Vital Signs
Temp Pulse Resp BP Pulse Ox
36.6 C 71 16 158/70 96
05/02/25 12:46 05/02/25 10:15 05/02/25 10:15 05/02/25 14:14 05/02/25 14:15
*Pulse Oximetry
SaO2: 98
Oxygen Mode of Delivery: Room air
Patient hypoxic: no
*Critical Care Note
Total Time (30-74mins, 75-104mins- exclusive of procedures): Not Applicable
ED Attending Note
-
Portions of this chart may have been created with voice recognition software.� Occasional wrong word or��sound alike� substitutions may have occurred due to the inherent limitations of voice recognition software.
Discharge Plan
Departure
Patient Disposition: Home (Routine Discharge)
Date of Disposition: 05/02/25
Time of Disposition: 13:21
Patient with high blood pressure during this ER visit?: Yes
Discharge Problem:
Hypocalcemia
Instructions: Hypocalcemia, BLOOD PRESSURE
Prescriptions:
No Action
aspirin 325 mg Tablet
325 mg PO DAILY
therapeutic multivitamin Tablet
1 tab PO HS
carvedilol 3.125 mg Tablet
3.125 mg PO BID
furosemide 20 mg Tablet
20 mg PO Q48H@0800
rosuvastatin 20 mg Tablet
20 mg PO HS
levetiracetam [Keppra] 500 mg tablet
500 mg PO BID Qty: 60 0RF
cyanocobalamin (vitamin B-12) 1,000 mcg Tablet
1,000 mcg PO DAILY
amlodipine 2.5 mg Tablet
2.5 mg PO DAILY
levothyroxine 125 mcg Tablet
125 mcg PO DAILY
lisinopril 10 mg Tablet
10 mg PO DAILY
magnesium 250 mg Tablet
250 mg PO DAILY
Referrals:
Mike Jordan DO [Family Provider, Family Practice]
Activity Restrictions/Additional Instructions:
I spoke to Dr. Hollis. He recommended that we give you IV calcium which we have done. Continue your current medications as he has previously recommended. Return here if worse or other concerns.
Interventions
Interventions:
*Risk Screen - Suicide Last Done: 05/02/25 10:15
*General Assessment Last Done: 05/02/25 12:50
*Neglect/Abuse Screening Last Done: 05/02/25 10:15
*ED- Fall Risk Assessment Last Done: 05/02/25 12:48
*ED COVID-19 Vaccine History Last Done: 05/02/25 12:48
*ED Influenza Vaccine History Last Done: 05/02/25 12:48
*Nursing Disposition Last Done: 05/02/25 14:21
ED-Skin Assessment Last Done: 05/02/25 12:51
Discharge Date and Time
Discharge Date/Time: 05/02/25 14:23
Print Language: KAZAKH
[2025-05-02 12:46] VITALS: BMI 35.9
[2025-05-02 12:53] VITALS: BP 159/66
[2025-05-02 13:03] LABS: Magnesium 1.7 mg/dl (1.6-2.3)
[2025-05-02] MEDS: CALCIUM GLUCONATE 100 IV (13:12)
[2025-05-02 14:14] VITALS: BP 158/70
== END 2025-05-02 14:23 | disposition home or self-care (01) ==
LOC: EMR 10:05
PROVIDERS: Emergency Medicine; EMERGENCY PHYSICIAN Emergency Medicine; FAMILY PHYSICIAN Student in an Organized Health Care Education/Training Program
DX: E83.51 Hypocalcemia (principal); E78.00 Pure hypercholesterolemia, unspecified; I10 Essential (primary) hypertension
CPT/HCPCS: 99283; 96374; 80053; 83735; 83970; 85025